=== PATIENT | female | born 1975 | race Caucasian/White ===

== ENCOUNTER 2021-12-04 21:55 | Emergency (ER) | payer BC ==
[~2021-12-04] VITALS: Ht 160 cm; Wt 72.7 kg
[2021-12-04 22:00] VITALS: BP 125/75
[2021-12-04] MEDS ORDERED: HYDROcodone/acetaminophen 10/325mg tab PO ONE (22:50)
[2021-12-04] MEDS ORDERED: fentaNYL/PF 50MCG/1 ML 2ML syringe IM ONE (23:55)
[2021-12-05] MEDS ORDERED: HYDR-3973 PO (00:28)
== END 2021-12-05 01:04 | disposition home or self-care (01) ==
LOC: ER 21:56
DX: S82.51XA Displaced fracture of medial malleolus of right tibia, initial encounter for closed fracture (principal); X50.9XXA Other and unspecified overexertion or strenuous movements or postures, initial encounter; Y93.89 Activity, other specified; Y92.89 Other specified places as the place of occurrence of the external cause; Y99.8 Other external cause status
CPT/HCPCS: 27768; 73590; 73610; 96372; 99284; J3010; 94760